=== PATIENT | female | born 1990 | race Caucasian/White ===

== ENCOUNTER 2017-04-23 15:30 | Emergency (ER) | payer OTHER ==
[2017-04-23 15:36] VITALS: BP 120/68
--- NOTE | 2017-04-23 16:50 | UC ---
General HPI - HPI Summary HPI Summary: complaint of insect bite on her right lower leg noticed bug bite 3 days ago since then she has noticed red rash that is getting bigger around the bite used bacitracin on it today felt some chills yesterday - scratchy throat, nasal congestion and cough for 3 days denies headache, headaches, ear pain and shortness of breath not taking any medication for cold symptoms last tetanus 2 years ago - History of Current Complaint Chief Complaint: UCSkin Stated Complaint: POSSIBLE BUG BITE Time Seen by Provider: 04/23/17 16:31 Hx Obtained From: Patient - Allergy/Home Medications Allergies/Adverse Reactions: Allergies Allergy/AdvReac Type Severity Reaction Status Date / Time No Known Allergies Allergy Verified 04/23/17 15:36 PMH/Surg Hx/FS Hx/Imm Hx Previously Healthy: Yes - Surgical History Surgical History: None - Family History Known Family History: Positive: None Negative: Cardiac Disease, Hypertension, Diabetes - Social History Occupation: Employed Full-time Lives: With Family Alcohol Use: Rare Substance Use Type: None Smoking Status (MU): Never Smoked Tobacco Have You Smoked in the Last Year: No Review of Systems Constitutional: Chills Skin: Rash Eyes: Negative ENT: Nasal Discharge Respiratory: Cough Cardiovascular: Negative Gastrointestinal: Negative Genitourinary: Negative Motor: Negative Neurovascular: Negative Musculoskeletal: Negative Neurological: Negative Psychological: Negative All Other Systems Reviewed And Are Negative: Yes Physical Exam Triage Information Reviewed: Yes Appearance: No Pain Distress, Well-Nourished Vital Signs: Initial Vital Signs Temp 97.8 F 04/23/17 15:32 Pulse 99 04/23/17 15:32 Resp 16 04/23/17 15:32 BP 120/68 04/23/17 15:32 Pulse Ox 100 04/23/17 15:32 Vital Signs Reviewed: Yes Eyes: Positive: Conjunctiva Clear ENT: Positive: Pharyngeal erythema, Nasal congestion, Nasal drainage, TMs normal Neck: Positive: No Lymphadenopathy Respiratory: Positive: Lungs clear, Normal breath sounds, No respiratory distress, No accessory muscle use Cardiovascular: Positive: RRR, No Murmur, Pulses Normal, Brisk Capillary Refill Abdomen Description: Positive: Nontender, Soft Bowel Sounds: Positive: Present Musculoskeletal: Positive: No Edema Neurological: Positive: Alert Psychological Exam: Normal Skin: Positive: rashes - RLE- 9x7cm area of erythema around insect bite site- warm to touch and slightly tender Course/Dx - Course Course Of Treatment: exam completed. will treat for cellulitis. UTD on tetanus - Differential Dx - Multi-Symptom Provider Diagnoses: cellulitis- RLL. insect bite Discharge - Discharge Plan Condition: Stable Disposition: HOME Prescriptions: Cephalexin CAP* [Keflex CAP*] 500 mg PO QID #28 cap Patient Education Materials: Cellulitis (ED) Referrals: Wesly Mg MD [Primary Care Provider] - Additional Instructions: CELLULITIS What is Cellulitis? Cellulitis is a bacterial infection of the skin and, sometimes, of the tissues beneath the skin. The skin normally has many types of bacteria on it, but intact skin is an effective barrier that keeps bacteria from entering and growing within the body. When there is a break in the skin, bacteria can enter the body and grow there, causing infection. The infection usually affects outer layers of the skin first, and then spreads deeper into body tissues. Cellulitis can affect any area of the body covered by skin, but it is most common on the face or lower part of the legs. Symptoms Might Include: Skin redness that increases in size as the infection spreads Tight, glossy, "stretched" appearance of the skin Pain or tenderness of the area The affected area may be warm or hot to the touch A thin red line (along a vein) from the cellulitis toward the heart Fever Chills, shaking Muscle aches pains Joint stiffness because of swelling around a joint Treatment Recommendations: The healthcare provider may have prescribed an antibiotic medicine. The medicine should be taken until it is completely gone, even if you are feeling better. If you stop taking the medicine early, the infection may not be completely gone, and the medication may not work the next time. If the infection is on your arm or leg, keep it elevated. You may use warm, wet compresses to relieve the pain and help healing. Soak a clean cloth in warm water, wring it out a little, and apply it to the affected site. Leave the soak in place for 15 minutes and repeat often throughout the day. Rest until the fever is gone and the pain and redness have lessened. You may take ibuprofen (Motrin, Advil), or acetaminophen (Tylenol) for pain. These will help ease some of the symptoms but will not cure the infection. Call Your Doctor or Return Here IF: Your fever does not go down with treatment, or it increases to more than 101 F. You are not starting to get better with the treatment within 24 to 36 hours. You have increasing pain, swelling, or chills. You feel drowsy and lethargic, or you have vomiting or diarrhea. You find the redness is spreading or there are red streaks coming from the infected area. The joint or bone under the infected skin becomes painful after the skin has started to heal. You have any new symptoms that worry you
== END 2017-04-23 17:08 | disposition home or self-care (01) ==
LOC: UCEAST 15:30
DX: S80.861A Insect bite (nonvenomous), right lower leg, initial encounter (principal); L03.115 Cellulitis of right lower limb; W57.XXXA Bitten or stung by nonvenomous insect and other nonvenomous arthropods, initial encounter
CPT/HCPCS: 99212; G0463

== ENCOUNTER 2017-12-21 10:19 | Emergency (ER) | payer OTHER ==
--- NOTE | 2017-12-21 10:25 | UC ---
Cardiac HPI - HPI Summary HPI Summary: Pt presents with chest tightness, SOB, and feeling that her heart is "skipping a beat" intermittently over the last 2 days. She says that these symptoms started suddenly and happen 5-10 times a day for minutes at a time. They are relieved by resting and waiting for them to subside. She denies a history of anxiety or increased stress recently, but she is blaming her symptoms over the last 2 days on "anxiety". She has no PMH and takes no medications - has an IUD. She does not smoke. Denies fever, chills, headache, dizziness, cough, abdominal pain, n/v/d/c. - History of Current Complaint Stated Complaint: HEART SKIPPING BEATS Time Seen by Provider: 12/21/17 10:21 Hx Obtained From: Patient Hx Last Menstrual Period: IUD does not get Onset/Duration: Sudden Onset Timing: Intermittent Episodes Lasting: - minutes Initial Severity: Mild Current Severity: Mild Pain Intensity: 2 Chest Pain Location: Left Anterior Character: Skipped Beats, Tightness Alleviating Factor(s): Rest - Risk Factors Pulmonary Embolism Risk Factors: Negative Cardiac Risk Factors: Negative Atrial Fibrillation: Negative - Allergy/Home Medications Allergies/Adverse Reactions: Allergies Allergy/AdvReac Type Severity Reaction Status Date / Time No Known Allergies Allergy Verified 12/21/17 10:36 Home Medications: Home Medications Levonorgestrel (Iud) [Mirena IUD] 20 mcg ENDOCERV DAILY 12/21/17 [History Confirmed 12/21/17] PMH/Surg Hx/FS Hx/Imm Hx Previously Healthy: Yes - Surgical History Surgical History: None - Family History Known Family History: Positive: None Negative: Cardiac Disease, Hypertension, Diabetes - Social History Occupation: Employed Full-time Lives: With Family Alcohol Use: Rare Substance Use Type: None Smoking Status (MU): Never Smoked Tobacco Have You Smoked in the Last Year: No Review of Systems Constitutional: Negative Skin: Negative Eyes: Negative ENT: Negative Respiratory: Shortness Of Breath Cardiovascular: Palpitations, Chest Pain Gastrointestinal: Negative Neurovascular: Negative Musculoskeletal: Negative Neurological: Negative Psychological: Negative All Other Systems Reviewed And Are Negative: Yes Physical Exam - Summary Physical Exam Summary: GENERAL: NAD. WDWN. No pain distress. SKIN: No rashes, sores, ulcers, masses, lesions. No clubbing or cyanosis. HEENT: Head: AT/NC Eyes: PERRLA. EOM intact. Conjunctiva clear without inflammation or discharge. Ears: Hearing grossly normal. TMs intact, no bulging, erythema, or edema. Nose: Nasal mucosa pink and moist. NTTP maxillary and frontal sinus. Throat: Posterior oropharynx without exudates, erythema, or tonsillar enlargement. Uvula midline. NECK: Supple. Nontender. No lymphadenopathy. CHEST: CTAB. No r/r/w. No accessory muscle use. Breathing comfortably and in no distress. CV: Tachycardic. Without m/r/g. Pulses intact. Brisk cap refill. ABDOMEN: Soft. NTTP. No distention or guarding., No organomegaly. No CVA tenderness. Bowel sounds present x4. NEURO: Appears anxious. Alert. CN II-XII grossly intact. PSYCH: Age appropriate behavior. Triage Information Reviewed: Yes Diagnostics - EKG Cardiac Rate: Tachycardia Cardiac Rhythm: Sinus: Normal Ectopy: None ST Segment: Normal - Assessment/Plan Course Of Treatment: EKG Sinus tach at 120bpm. No ST changes as read by Dr. Muñoz. I had a discussion with the pt that although her symptoms may be related to anxiety or episodes of SVT - it is important to have a more appropriate work up regarding her chest discomfort at the ED. She was agreeable to this plan. Declined ambulance and will drive herself. - Clinical Impression Provider Diagnoses: Chest tightness. SOB Discharge - Discharge Plan Condition: Stable Disposition: OTHER Discharge Disposition Comment: [place] [facility] [place] Referrals: Wesly Mg MD [Primary Care Provider] - Additional Instructions: Please report to [facility] for further evaluation of your chest tightness and palpitations. If you develop worsening or new symptoms along the way - please mandrel puller and dial [phone].
[2017-12-21 10:36] VITALS: BP 128/69
== END 2017-12-21 10:43 ==
LOC: UCEAST 10:19
DX: R07.89 Other chest pain (principal); R06.02 Shortness of breath; R00.0 Tachycardia, unspecified; Z97.5 Presence of (intrauterine) contraceptive device
CPT/HCPCS: 93005; 99211; G0463

== ENCOUNTER 2017-12-21 11:07 | Emergency (ER) | payer OTHER ==
[2017-12-21] MEDS ORDERED: NS 0.9% 1000 ML* 1,000 ML IV ONE (11:28)
[2017-12-21 11:49] LABS: ABS Basophils 0 10^3/ul (0-0.2); ABS Eosinophils 0.1 10^3/ul (0-0.6); ABS Lymphocytes 1.9 10^3/ul (1.0-4.8); ABS Monocytes 0.6 10^3/ul (0-0.8); ABS Neutrophils 4.5 10^3/ul (1.5-7.7); ABS Nucleated RBC 0 10^3/ul; Eosinophil % 1.2 % (0-6); Hematocrit 41 % (35-47); Hemoglobin 13.5 g/dl (12.0-16.0); Lymphocyte % 26.4 % (25-47); Mean Corpuscular HGB Conc 33 g/dl (31-36); Mean Corpuscular Hemoglobin 26 pg (27-31); Mean Corpuscular Volume 78 fL (80-97); Mean Platelet Volume 9 um3 (7.4-10.4); Nucleated Red Blood Cells % 0.1; Platelet Count 241 10^3/ul (150-450); Red Blood Count 5.23 10^6/ul (4.0-5.4); Red Cell Distribution Width 14 % (10.5-15); White Blood Count 7.2 10^3/ul (3.5-10.8)
[2017-12-21 12:01] LABS: INR 0.98 (0.77-1.02)
[2017-12-21 12:03] VITALS: BP 125/67
[2017-12-21 12:08] LABS: EGFR Non-African American 84.8 (>60)
--- NOTE | 2017-12-21 12:42 | RAD ---
INDICATION: Palpitations COMPARISON: None TECHNIQUE: An AP portable view obtained at 1227 hours is submitted. FINDINGS: Bones/Soft Tissues: There are no acute bony findings. Cardiomediastinal: The cardiomediastinal silhouette is normal. Lungs: There are no infiltrates. Pleura: There are no pleural effusions. Other: None IMPRESSION: NO ACTIVE DISEASE
--- NOTE | 2017-12-21 22:24 | ED ---
Elliot Sebastian Stephanie, scribed for King Mark MD on 12/21/17 at 1156 . HPI Chest Pain - HPI Summary HPI Summary: The pt is a 27 y/o F presenting to the ED with c/o chest tightness and palpitations that began on 12/19/17. Symptoms include SOB. The pt states the chest tightness began on 12/19/17, lasted 1 hour, and was then followed by palpitations. The pt then felt the chest tightness on 12/20/17 after waking up and is now intermittent and lasts 2 seconds. - History of Current Complaint Chief Complaint: EDDysrhythmPalp Time Seen by Provider: 12/21/17 11:27 Hx Obtained From: Patient Hx Last Menstrual Period: IUD does not get Onset/Duration: Started Days Ago - 1, Resolved Timing: Intermittent Current Severity: None Pain Intensity: 0 Pain Scale Used: 0-10 Numeric Chest Pain Location: Diffuse Chest Pain Radiates: No Character: Tightness, Other: - palpitations Aggravating Factor(s): Nothing Alleviating Factor(s): Nothing Associated Signs and Symptoms: Positive: Chest Pain - tightness, Shortness of Breath - Allergy/Home Medications Allergies/Adverse Reactions: Allergies Allergy/AdvReac Type Severity Reaction Status Date / Time No Known Allergies Allergy Verified 12/21/17 11:17 PMH/Surg Hx/FS Hx/Imm Hx Endocrine/Hematology History: Denies: Hx Diabetes, Hx Thyroid Disease Cardiovascular History: Denies: Hx Hypertension Respiratory History: Denies: Hx Asthma, Hx Chronic Obstructive Pulmonary Disease (COPD) GI History: Denies: Hx Ulcer - Surgical History Surgery Procedure, Year, and Place: denies Infectious Disease History: No Infectious Disease History: Denies: Hx Hepatitis, Hx Human Immunodeficiency Virus (HIV), History Other Infectious Disease, Traveled Outside the [place] in Last 30 Days - Family History Known Family History: Positive: Other - PE, aneurism Negative: Cardiac Disease, Hypertension, Diabetes - Social History Occupation: Employed Part-time Lives: Alone Alcohol Use: Rare Substance Use Type: Reports: None Smoking Status (MU): Never Smoked Tobacco Have You Smoked in the Last Year: No Review of Systems Negative: Fever Positive: Palpitations, Chest Pain - tightness Positive: Shortness Of Breath All Other Systems Reviewed And Are Negative: Yes Physical Exam - Summary Physical Exam Summary: General: well-appearing, no pain distress Skin: warm, color reflects adequate perfusion, dry Head: normal Eyes: EOMI, BRANDEN ENT: normal Neck: supple, nontender Respiratory: CTA, breath sounds present Cardiovascular: RRR Abdomen: soft, nontender Bowel: present Musculoskeletal: normal, strength/ROM intact Neurological: normal, sensory/motor intact, A&O x3 Psychological: affect/mood appropriate Triage Information Reviewed: Yes Vital Signs On Initial Exam: Initial Vitals Temp Pulse Resp BP Pulse Ox 99.4 F 107 16 149/81 99 12/21/17 11:10 12/21/17 11:10 12/21/17 11:10 12/21/17 11:10 12/21/17 11:10 Vital Signs Reviewed: Yes Diagnostics - Vital Signs Vital Signs Temp Pulse Resp BP Pulse Ox 12/21/17 11:16 100 16 99 12/21/17 11:10 99.4 F 107 16 149/81 99 - Laboratory Lab Results: Lab Results 12/21/17 Range/Units 11:40 WBC 7.2 (3.5-10.8) 10^3/ul RBC 5.23 (4.0-5.4) 10^6/ul Hgb 13.5 (12.0-16.0) g/dl Hct 41 (35-47) % MCV 78 L (80-97) fL MCH 26 L (27-31) pg MCHC 33 (31-36) g/dl RDW 14 (10.5-15) % Plt Count 241 (150-450) 10^3/ul MPV 9 (7.4-10.4) um3 Neut % (Auto) 63.5 (38-83) % Lymph % (Auto) 26.4 (25-47) % Barron % (Auto) 8.3 H (0-7) % Eos % (Auto) 1.2 (0-6) % Baso % (Auto) 0.6 (0-2) % Absolute Neuts (auto) 4.5 (1.5-7.7) 10^3/ul Absolute Lymphs (auto) 1.9 (1.0-4.8) 10^3/ul Absolute Monos (auto) 0.6 (0-0.8) 10^3/ul Absolute Eos (auto) 0.1 (0-0.6) 10^3/ul Absolute Basos (auto) 0 (0-0.2) 10^3/ul Absolute Nucleated RBC 0 10^3/ul Nucleated RBC % 0.1 Result Diagrams: 12/21/17 11:40 12/21/17 11:40 Lab Statement: Any lab studies that have been ordered have been reviewed, and results considered in the medical decision making process. - Radiology CXR Xray Interpretation: No Acute Changes Radiology Interpretation Completed By: Radiologist - NO ACTIVE DISEASE - EKG 11:26 Cardiac Rate: NL EKG Rhythm: Sinus Rhythm - [address] Segment: Normal, Non-Specific Ectopy: None EKG Interpretation: Not a STEMI Chest Pain Course/Dx - Course Course Of Treatment: BP noted and advised to follow up with PCP. DISCUSSED RESULTS WITH PATIENT. F/U PMD; RETURN IF WORSE. - Diagnoses Provider Diagnoses: Elevated BP without diagnosis of hypertension, Chest pain, PVC (premature ventricular contraction) Discharge - Discharge Plan Condition: Stable Disposition: HOME Patient Education Materials: Chest Pain (ED), Heart Palpitations (ED) Referrals: Wesly Mg MD [Primary Care Provider] - Additional Instructions: FOLLOW UP WITH YOUR DOCTOR. YOU WERE HAVING PREMATURE VENTRICULAR CONTRACTIONS. STAY WELL HYDRATED. AVOID EXCESSIVE CAFFEINE INTAKE. CONSIDER TAKING MAGNESIUM SUPPLEMENTS. RETURN TO THE EMERGENCY DEPARTMENT FOR ANY WORSENING OF YOUR CONDITION OR QUESTIONS OR CONCERNS. YOUR BLOOD PRESSURE WAS ELEVATED TODAY; FOLLOW UP WITH YOUR PRIMARY CARE DOCTOR WITHIN THE NEXT 1 WEEK. The documentation as recorded by the Elliot kaur Stephanie accurately reflects the service I personally performed and the decisions made by me, King Mark MD.
== END 2017-12-21 13:45 | disposition home or self-care (01) ==
LOC: ED 11:07
DX: R03.0 Elevated blood-pressure reading, without diagnosis of hypertension (principal); R07.9 Chest pain, unspecified; I49.3 Ventricular premature depolarization; R06.02 Shortness of breath
CPT/HCPCS: 36415; 71045; 80053; 82550; 82553; 83605; 83690; 83735; 83880; 84443; 84484; 84702; 85025; 85379; 85610; 85730; 86140; 93005; 96360; 99283